=== PATIENT | female | born 1995 | race Hispanic/Latino ===

== ENCOUNTER 2021-12-19 04:56 | Inpatient (IN) | payer BC ==
[~2021-12-19] VITALS: Ht 167.6 cm; Wt 85.3 kg
[2021-12-19] MEDS ORDERED: ONDANSETRON ODT 4MG TAB ONE (05:23)
[2021-12-19] MEDS ORDERED: ONDANSETRON ODT 4MG TAB SL ONE ×2 (05:30)
[2021-12-19 05:47] LABS: APPEARANCE,URINE CLEAR (CLEAR); BILIRUBIN,URINE NEGATIVE (NEGATIVE); COLOR,URINE YELLOW (YELLOW); GLUCOSE, URINE (UA) NEGATIVE (NEGATIVE); KETONES,URINE 150 mg/dL (NEGATIVE); LEUKOCYTE ESTERASE ,URINE 250 Leu/uL (NEGATIVE); NITRATE,URINE NEGATIVE (NEGATIVE); OCCULT BLOOD,URINE NEGATIVE (NEGATIVE); PH,URINE 5.5 (5.0-8.0); PROTEIN,URINE 30 mg/dL (NEGATIVE); UROBILINOGEN,URINE 0.2 mg/dL (0.2-1.0)
[2021-12-19 05:54] LABS: AMPHET/METH SCREEN,URINE NEGATIVE (NEGATIVE); BARBITURATE SCREEN, URINE NEGATIVE (NEGATIVE); BENZODIAZEPINES SCREEN,URINE NEGATIVE (NEGATIVE); CANNABINOID SCREEN,URINE NEGATIVE (NEGATIVE); COCAINE SCREEN,URINE NEGATIVE (NEGATIVE); PHENCYCLIDINE SCREEN,URINE NEGATIVE (NEGATIVE)
[2021-12-19 05:57] LABS: BACTERIA,URINE RARE /HPF (None Seen); MUCUS,URINE FEW LPF (None Seen); SQUAMOUS EPITHELIAL CELL,UR RARE /HPF (0-2)
[2021-12-19] MEDS ORDERED: CITRIC ACID/SODIUM CITRATE 30 ML UDCUP ONE (06:43)
[2021-12-19 06:54] LABS: BASOPHILS % (AUTO) 0.2 % (0.0-5.0); EOSINOPHILS % (AUTO) 0.1 % (0.0-8.0); HEMATOCRIT 36.6 % (36-48); LYMPHOCYTES % (AUTO) 4.6 % (21.0-51.0); MEAN CORPUSCULAR HGB CONC 32.8 g/dL (32.0-36.0); MEAN CORPUSCULAR VOLUME 79.4 fL (79-99); MONOCYTES % (AUTO) 2.1 % (3.0-13.0); NEUTROPHILS % (AUTO) 92.3 % (40.0-77.0); PLATELET COUNT (AUTO) 237 K/uL (130-400); RED BLOOD CELL COUNT(AUTO) 4.61 MIL/uL (4.00-5.50); RED CELL DISTRIBUTION WIDTH 16.2 % (11.0-15.5); WHITE BLOOD COUNT (AUTO) 16.3 K/uL (4.8-10.8)
[2021-12-19] MEDS ORDERED: CITRIC ACID/SODIUM CITRATE 30 ML UDCUP PO SCH (07:00)
[2021-12-19] MEDS ORDERED: FAMOTIDINE 20MG VIAL IV SCH ×2 (07:00→09:00)
[2021-12-19 07:49] LABS: CREATININE 0.6 mg/dL (0.5-1.5); POTASSIUM 3.3 mmol/L (3.5-5.1); TOTAL PROTEIN, SERUM 7.4 g/dL (6.0-8.3)
[2021-12-19] MEDS ORDERED: METOCLOPRAMIDE 10 MG/2 ML VIAL IVP SCH (09:00)
[2021-12-19] MEDS: MEPERIDINE-PF 50 MG/ML SYG IVP PRN ×4 (09:45→19:57)
[2021-12-19] MEDS: PROMETHAZINE HCL 25 MG/ML 1ML AMPULE IM PRN ×5 (09:49→23:59)
[2021-12-19] MEDS ORDERED: PREN-154 PO (10:03)
[2021-12-19 11:53] VITALS: BP 141/75
[2021-12-19] MEDS: METOCLOPRAMIDE 10 MG TABLET PO SCH ×2 (11:54→17:03)
[2021-12-19] MEDS: LACTATED RINGERS 1000ML 1,000 ML IV SCH ×2 (14:00→23:59)
[2021-12-19] MEDS ORDERED: CEFTRIAXONE 1G VIAL ONE (15:57)
[2021-12-19] MEDS ORDERED: CEFTRIAXONE 1G VIAL IVP SCH (16:00)
[2021-12-19 16:07] LABS: HEMOGLOBIN A1C 5.5 % (4.0-6.0)
[2021-12-19] MEDS: ZOSYN 3.375GM +NS 50ML IV SCH (16:32)
[2021-12-19 16:38] LABS: ALBUMIN 3.1 g/dL (3.5-5.0); CREATININE 0.6 mg/dL (0.5-1.5); MAGNESIUM 1.8 mg/dL (1.80-2.40); POTASSIUM 3.5 mmol/L (3.5-5.1); TOTAL PROTEIN, SERUM 7.6 g/dL (6.0-8.3)
[2021-12-19 16:49] VITALS: BP 149/89
[2021-12-19] MEDS: CITRIC ACID/SODIUM CITRATE 30 ML UDCUP PO SCH ×2 (17:03→21:40)
[2021-12-19 19:26] VITALS: BP 144/86
[2021-12-19] MEDS ORDERED: ACETAMINOPHEN WITH CODEINE 1 TAB TAB PO PRN (20:00)
[2021-12-19 23:22] VITALS: BP 133/94
[2021-12-20] MEDS: ONDANSETRON 4MG INJ IVP PRN ×2 (02:17→11:38)
[2021-12-20 03:32] VITALS: BP 120/86
[2021-12-20] MEDS: PROMETHAZINE HCL 25 MG/ML 1ML AMPULE IM PRN (03:57)
[2021-12-20] MEDS: MEPERIDINE-PF 50 MG/ML SYG IVP PRN ×4 (03:58→12:47)
[2021-12-20 04:50] LABS: BASOPHILS % (AUTO) 0.7 % (0.0-5.0); EOSINOPHILS % (AUTO) 2.1 % (0.0-8.0); HEMATOCRIT 54.3 % (36-48); MEAN CORPUSCULAR HEMOGLOBIN 25.5 pg (27.0-33.0); MEAN CORPUSCULAR HGB CONC 32.2 g/dL (32.0-36.0); MEAN CORPUSCULAR VOLUME 79.3 fL (79-99); MONOCYTES % (AUTO) 15.2 % (3.0-13.0); NEUTROPHILS % (AUTO) 69.5 % (40.0-77.0); PLATELET COUNT (AUTO) 345 K/uL (130-400); RED BLOOD CELL COUNT(AUTO) 6.85 MIL/uL (4.00-5.50); RED CELL DISTRIBUTION WIDTH 17.6 % (11.0-15.5); WHITE BLOOD COUNT (AUTO) 9.4 K/uL (4.8-10.8)
[2021-12-20 05:05] VITALS: BP 110/73
[2021-12-20 05:16] LABS: CREATININE 1.2 mg/dL (0.5-1.5); CRP QUANTITATIVE 72.5 mg/L (0.00-9.0); MAGNESIUM 1.8 mg/dL (1.80-2.40); POTASSIUM 3.9 mmol/L (3.5-5.1)
[2021-12-20] MEDS ORDERED: 0.9%NACL 1000ML 1,000 ML IV SCH (05:30)
[2021-12-20 05:40] VITALS: BP 109/60
[2021-12-20 07:15] LABS: THYROID STIMULATING HORMONE 0.73 uIU/mL (0.36-3.74)
[2021-12-20] MEDS: LACTATED RINGERS 1000ML 1,000 ML IV SCH ×2 (07:54→08:00)
[2021-12-20] MEDS: ZOSYN 3.375GM +NS 50ML IV SCH ×2 (07:54)
[2021-12-20 08:00] VITALS: BP 124/89
[2021-12-20] MEDS ORDERED: METOCLOPRAMIDE 10 MG/2 ML VIAL IVP PRN (08:00)
[2021-12-20] MEDS: METOCLOPRAMIDE 10 MG TABLET PO SCH (08:00)
[2021-12-20] MEDS ORDERED: LACTATED RINGERS 1000ML 1,000 ML IV SCH (08:00)
[2021-12-20] MEDS: CITRIC ACID/SODIUM CITRATE 30 ML UDCUP PO SCH (09:00)
[2021-12-20] MEDS ORDERED: FAMOTIDINE 20MG VIAL IV SCH (09:00)
[2021-12-20 09:24] LABS: ALBUMIN 2.6 g/dL (3.5-5.0); BILIRUBIN,DIRECT 0.2 mg/dL (0.0-0.3); TOTAL PROTEIN, SERUM 7.6 g/dL (6.0-8.3)
[2021-12-20 11:34] VITALS: BP 150/90
== END 2021-12-20 16:16 | disposition short-term general hospital (02) | DRG 833 ==
LOC: EDH 04:56 → LDH 04:57 → OBSVTOIN 04:57 → WSH 09:06 → 3AH 12-20 05:45
PROVIDERS: ADMIT Obstetrics & Gynecology; ATTEND Obstetrics & Gynecology
DX: O24.912 Unspecified diabetes mellitus in pregnancy, second trimester (principal); Z3A.22 22 weeks gestation of pregnancy; Z20.822 Contact with and (suspected) exposure to COVID-19
CPT/HCPCS: 36415; 76705; 80048; 80053; 80076; 80305; 81001; 82010; 82150; 82330; 82550; 82947; 82948; 83036; 83605; 83690; 83735; 84145; 84443; 85025; 86140; 86677; 87088; 87426; 93005; 96360; 96361; G0378; J0696; J2175; J2405; J2543; J2550; J2765; J3490; J7120

== ENCOUNTER 2022-03-30 10:22 | Observation (INO) | payer BC ==
[~2022-03-30] VITALS: Ht 167.6 cm; Wt 76.7 kg
[2022-03-30 11:18] LABS: BASOPHILS % (AUTO) 0.2 % (0.0-5.0); EOSINOPHILS % (AUTO) 1.1 % (0.0-8.0); HEMATOCRIT 34.5 % (36-48); LYMPHOCYTES % (AUTO) 11.3 % (21.0-51.0); MEAN CORPUSCULAR HEMOGLOBIN 25.8 pg (27.0-33.0); MEAN CORPUSCULAR HGB CONC 31.6 g/dL (32.0-36.0); MEAN CORPUSCULAR VOLUME 81.8 fL (79-99); MONOCYTES % (AUTO) 8.5 % (3.0-13.0); NEUTROPHILS % (AUTO) 77.5 % (40.0-77.0); PLATELET COUNT (AUTO) 191 K/uL (130-400); RED BLOOD CELL COUNT(AUTO) 4.22 MIL/uL (4.00-5.50); RED CELL DISTRIBUTION WIDTH 13.7 % (11.0-15.5); WHITE BLOOD COUNT (AUTO) 10.3 K/uL (4.8-10.8)
[2022-03-30 11:23] LABS: ALBUMIN 2.6 g/dL (3.5-5.0); CREATININE 0.5 mg/dL (0.5-1.5); INR 0.93 (0.85-1.15); POTASSIUM 3.7 mmol/L (3.5-5.1); PROTHROMBIN TIME 9.8 SEC (9.6-11.6); URIC ACID 5.2 mg/dL (2.6-7.2)
[2022-03-30 11:24] LABS: APPEARANCE,URINE CLEAR (CLEAR); BILIRUBIN,URINE NEGATIVE (NEGATIVE); COLOR,URINE LIGHT-YELLOW (YELLOW); GLUCOSE, URINE (UA) NEGATIVE (NEGATIVE); KETONES,URINE NEGATIVE (NEGATIVE); LEUKOCYTE ESTERASE ,URINE NEGATIVE Leu/uL (NEGATIVE); NITRATE,URINE NEGATIVE (NEGATIVE); OCCULT BLOOD,URINE NEGATIVE (NEGATIVE); PH,URINE 6.5 (5.0-8.0); PROTEIN,URINE NEGATIVE (NEGATIVE); UROBILINOGEN,URINE 0.2 mg/dL (0.2-1.0)
[2022-03-30 11:25] LABS: PARTIAL THROMBOPLASTIN TIME 28.2 SEC (26.3-35.5)
[2022-03-30 12:50] VITALS: BP 124/76
== END 2022-03-30 12:30 | disposition home or self-care (01) ==
LOC: LDH 10:22
PROVIDERS: ADMIT Obstetrics & Gynecology; ATTEND Obstetrics & Gynecology
DX: O14.93 Unspecified pre-eclampsia, third trimester (principal); O99.323 Drug use complicating pregnancy, third trimester; F12.90 Cannabis use, unspecified, uncomplicated; Z3A.36 36 weeks gestation of pregnancy
CPT/HCPCS: 84550; 80053; 85025; 85384; 85610; 85730; 81003; 36415; 76805; G0378 ×2; G0379

== ENCOUNTER → 2022-05-08 | Outpatient (CLI) | payer BC ==
[~2022-05-08] MED LIST: AEC81 PO; DOCU-116 PO; IBUP-1493 PO; LIDOCAINE HCL 4% LTA SOL 4 ML VIAL TP ONE; PREN1TAB80 PO
== END | disposition home or self-care (01) ==
LOC: WHH 08:18
PROVIDERS: ATTEND Family Medicine
DX: O90.0 Disruption of cesarean delivery wound (principal); O99.325 Drug use complicating the puerperium; F12.90 Cannabis use, unspecified, uncomplicated
CPT/HCPCS: 11042; A6248; A4450

== ENCOUNTER → 2022-05-15 | Outpatient (CLI) | payer BC ==
[~2022-05-15] MED LIST changes: -LIDOCAINE HCL 4% LTA SOL 4 ML VIAL TP ONE
== END | disposition home or self-care (01) ==
LOC: WHH 09:01
PROVIDERS: ATTEND Family Medicine
DX: O90.0 Disruption of cesarean delivery wound (principal); O99.325 Drug use complicating the puerperium; F12.90 Cannabis use, unspecified, uncomplicated
CPT/HCPCS: 99214

== ENCOUNTER → 2022-05-22 | Outpatient (CLI) | payer BC ==
[~2022-05-22] MED LIST changes: +LIDOCAINE HCL 4% LTA SOL 4 ML VIAL TP ONE
== END | disposition home or self-care (01) ==
LOC: WHH 09:29
PROVIDERS: ATTEND Family Medicine
DX: O90.0 Disruption of cesarean delivery wound (principal); O99.325 Drug use complicating the puerperium; F12.90 Cannabis use, unspecified, uncomplicated
CPT/HCPCS: 99214